=== PATIENT | male | born 1995 | race Hispanic/Latino ===

== ENCOUNTER 2024-02-08 20:14 | Emergency (ER) | payer SELFPAY ==
[2024-02-08 21:55] LABS: SARS-CoV-2 Antigen CONTROL BLUE LINE VIS/BG OK; SARS-CoV-2 Antigen Rapid Res Negative (Negative)
--- NOTE | 2024-02-08 22:24 | EDPHYS ---
Physician Documentation [facility] Name: See Martin Age: 28 yrs Sex: Male : 1995 Arrival Date: 02/08/2024 Time: 20:14 Bed IW1 Private MD: ED Physician Kenya Collazo HPI: 02/07 22:20 This 28 yrs old Male presents to ER via Ambulatory with complaints of sd2 Headache, Back Pain. 22:20 28 yo M presents with CC of fever, headache, back pain and body aches. Reports sick sd2 contacts. No cough, congestion or other symptoms. Has been taking Tylenol with some relief. . Historical: - Allergies: 20:48 No Known Allergies; cm10 - Home Meds: 20:48 None [Active]; cm10 - PMHx: 20:48 None; cm10 - PSHx: 20:48 None; cm10 - Immunization history:: Adult Immunizations up to date. - Infectious Disease History:: Denies. - Social history:: Smoking status: Patient denies any tobacco usage or history of. ROS: 22:20 Constitutional: Positive for fever, Negative for chills, and weight loss, Eyes: sd2 Negative for injury, pain, redness, and discharge, Cardiovascular: Negative for chest pain, palpitations, and edema, Respiratory: Negative for shortness of breath, cough, wheezing. Abdomen/GI: Negative for abdominal pain, nausea, vomiting, diarrhea. Back: Negative for injury and positive for pain, : Negative for dysuria, frequency or hematuria. MS/Extremity: Negative for injury and deformity, Skin: Negative for injury, rash, and discoloration, Neuro: Positive for headache, Negative for numbness and tingling. Exam: 22:20 Constitutional: This is a well developed, well nourished patient who is awake, alert, sd2 and in no acute distress. Head/Face: Normocephalic, atraumatic. Eyes: EOMI, normal conjunctiva bilaterally Chest/axilla: Normal chest wall appearance and motion. Nontender with no deformity. Cardiovascular: Regular rate and rhythm with a normal S1 and S2. No gallops, murmurs, or rubs. 2+ distal pulses. Respiratory: Lungs have equal breath sounds bilaterally, clear to auscultation and percussion. No rales, rhonchi or wheezes noted. No increased work of breathing, no retractions or nasal flaring. Abdomen/GI: Soft, non-tender, with normal bowel sounds. No guarding or rebound. No evidence of tenderness throughout. Back: No spinal tenderness. No costovertebral tenderness. Full range of motion. Skin: Warm, dry with normal turgor. Normal color with no rashes, no lesions, and no evidence of cellulitis. MS/ Extremity: Pulses equal, no cyanosis. Neurovascular intact. Full, normal range of motion. Psych: Awake, alert, with orientation to person, place and time. Behavior, mood, and affect are within normal limits. Vital Signs: 20:47 BP 137 / 88; Pulse 94; Resp 19; Temp 98.8; Pulse Ox 99% on R/A; Weight 102.06 kg; cm10 Height 5 ft. 9 in. ; Pain 9/10; 22:36 BP 135 / 82; Pulse 93; Resp 18; Temp 98.7; Pulse Ox 99% ; me1 20:47 Body Mass Index 33.23 (102.06 kg, 175.26 cm) cm10 20:47 Pain Scale: Adult cm10 MDM: 20:58 Medical Screening Exam initiated sd2 22:20 Differential diagnosis: flu, viral syndrome, UTI, COVID, dehydration, electrolyte sd2 abnormality among others. Data reviewed: vital signs, nurses notes, lab test result(s). Counseling: I had a detailed discussion with the patient and/or guardian regarding the historical points, exam findings, and any diagnostic results supporting the discharge/admit diagnosis, lab results, the need for outpatient follow up, to return to the emergency department if symptoms worsen or persist or if there are any questions or concerns that arise at home. ED course: Viral swabs negative. Suspect viral syndrome. Pt with no CVA tenderness or urinary symptoms. Also reports has not been drinking much fluids. Advised increased hydration and continued supportive care for symptoms. He is comfortable with plan for dc and outpatient follow up and verbalizes understanding of dc plan and strict return precautions.. 02/07 20:49 Order name: Flu; Complete Time: 22:20 cm10 02/07 20:49 Order name: SARS RAPID; Complete Time: 22:20 cm10 Administered Medications: No medications were administered Disposition Summary: 02/08/24 22:23 Discharge Ordered Problem: new sd2 Symptoms: have improved sd2 Condition: Stable sd2 Diagnosis - Flulike illness sd2 - Body aches sd2 - Back pain sd2 - Headache sd2 Followup: sd2 - With: Private Physician - When: 2 - 3 days - Reason: Recheck today's complaints, Continuance of care, Re-evaluation by your physician Discharge Instructions: - Discharge Summary Sheet sd2 - Viral Illness, Adult sd2 Forms: - Medication Reconciliation Form sd2 - Antibiotic Education sd2 - Prescription Opioid Use sd2 - Patient Portal Instructions sd2 - Leadership Thank You Letter sd2 Signatures: Dispatcher [employer] EDKenya Olsen MD MD sd2 Evelnie Hatch RN RN cm10 Corrections: (The following items were deleted from the chart) 20:50 20:50 Influenza Screen (A \T\ B)+BA.LAB.BRZ ordered. EDMS EDMS 20:50 20:50 SARS-COV-2 Antigen Rapid+I.LAB.BRZ ordered. EDMS EDMS
--- NOTE | 2024-02-08 22:24 | ER ---
Nurse's Notes [facility] Name: See Martin Age: 28 yrs Sex: Male : 1995 Arrival Date: 02/08/2024 Time: 20:14 Bed IW1 Private MD: Diagnosis: Flulike illness;Body aches;Back pain;Headache Presentation: 02/07 20:47 Chief complaint: Patient states: HEADACHE, NECK PAIN, FEVER ONSET YESTERDAY. cm10 Coronavirus screen: Client denies travel out of the [place] in the last 14 days. Ebola Screen: Patient denies travel to an Ebola-affected area in the 21 days before illness onset. No symptoms or risks identified at this time. Initial Sepsis Screen: Does the patient meet any 2 criteria? HR > 90 bpm. Does the patient have a suspected source of infection? No. Patient's initial sepsis screen is negative. Risk Assessment: Do you want to hurt yourself or someone else? Patient reports no desire to harm self or others. Onset of symptoms was February 07, 2024. 20:47 Method Of Arrival: Ambulatory 10 20:47 Acuity: ALBERTO 4 cm10 Triage Assessment: 20:49 General: Appears in no apparent distress. uncomfortable, Behavior is calm, cooperative. cm10 Neuro: No deficits noted. Level of Consciousness is awake, alert, obeys commands, Oriented to person, place, time, situation, Appropriate for age. Respiratory: No deficits noted. Airway is patent Respiratory effort is even, unlabored, Respiratory pattern is regular, symmetrical. 22:36 Headache History: The patient has had previous headaches and this one is similar to me1 previous episodes. Pain: Complains of pain in back of neck and head. Historical: - Allergies: 20:48 No Known Allergies; cm10 - Home Meds: 20:48 None [Active]; cm10 - PMHx: 20:48 None; cm10 - PSHx: 20:48 None; cm10 - Immunization history:: Adult Immunizations up to date. - Infectious Disease History:: Denies. - Social history:: Smoking status: Patient denies any tobacco usage or history of. Screenin:33 [facility] ED Fall Risk Assessment (Adult) History of falling in the last 3 months, me1 including since admission No falls in past 3 months (0 pts) Confusion or Disorientation No (0 pts) Intoxicated or Sedated No (0 pts) Impaired Gait No (0 pts) Mobility Assist Device Used No (0 pt) Altered Elimination No (0 pt) Score/Fall Risk Level 0 - 2 = Low Risk Maintained a safe environment, Provided non-skid footwear, Hourly rounding (assess needs \T\ fall precautionary measures) done. Abuse screen: Denies threats or abuse. Nutritional screening: No deficits noted. Tuberculosis screening: No symptoms or risk factors identified. Assessment: 22:33 General: Appears ill, well groomed, well developed, well nourished, Behavior is calm, me1 cooperative, appropriate for age, Reports HEADACHE, NECK PAIN, FEVER ONSET YESTERDAY. Pain: Complains of pain in head and back of neck Pain does not radiate. Pain currently is 4 out of 10 on a pain scale. Quality of pain is described as aching, Pain began 1 day ago. Is continuous. Neuro: Level of Consciousness is awake, alert, obeys commands, Oriented to person, place, time, situation, Appropriate for age Reports headache. Cardiovascular: Patient's skin is warm and dry. Respiratory: Airway is patent Trachea midline Respiratory effort is even, unlabored, Respiratory pattern is regular, symmetrical. GI: No signs and/or symptoms were reported involving the gastrointestinal system. : No signs and/or symptoms were reported regarding the genitourinary system. EENT: No signs and/or symptoms were reported regarding the EENT system. Derm: Skin is intact, is healthy with good turgor, Skin is normal. Musculoskeletal: Reports pain in back of neck. Vital Signs: 20:47 BP 137 / 88; Pulse 94; Resp 19; Temp 98.8; Pulse Ox 99% on R/A; Weight 102.06 kg; cm10 Height 5 ft. 9 in. ; Pain 9/10; 22:36 BP 135 / 82; Pulse 93; Resp 18; Temp 98.7; Pulse Ox 99% ; me1 20:47 Body Mass Index 33.23 (102.06 kg, 175.26 cm) cm10 20:47 Pain Scale: Adult cm10 ED Course: 20:17 Patient arrived in ED. mr 20:48 Triage completed. cm10 20:48 Arm band placed on right wrist. Patient placed in waiting room. cm10 20:58 Kenya Collazo MD is Attending Physician. sd2 21:11 Meme Mera, RN is Primary Nurse. me1 22:33 Patient has correct armband on for positive identification. Provided Education on: POC. me1 Verbalized understanding.. 22:33 No provider procedures requiring assistance completed. Patient did not have IV access me1 during this emergency room visit. Administered Medications: No medications were administered Medication: 22:33 VIS not applicable for this client. me1 Outcome: 22:23 Discharge ordered by . sd2 22:36 Discharged to home ambulatory, me1 22:36 Condition: stable 22:36 Discharge instructions given to patient, Instructed on discharge instructions, follow up and referral plans. Demonstrated understanding of instructions, follow-up care, 22:37 Patient left the ED. me1 Signatures: Briseyda Slater, Reg Reg mr Kenya Collazo MD MD sd2 Eveline Hatch, RN RN cm10 Meme Mera, RN RN me1 Corrections: (The following items were deleted from the chart) 22:33 20:47 Chief complaint: Patient states: HEADACHE, NECK PAIN, FEVER ONSET YESTERDAY. cm10 me1
[2024-02-08 23:00] VITALS: O2SAT 99
[2024-02-08 23:01] VITALS: BP 135/82; TEMP 98.7
== END 2024-02-08 22:37 | disposition home or self-care (01) ==
LOC: ER 20:14
DX: J11.1 Influenza due to unidentified influenza virus with other respiratory manifestations (principal); M54.9 Dorsalgia, unspecified; Z11.52 Encounter for screening for COVID-19
CPT/HCPCS: 36415; 87804; 87811; 99283